=== PATIENT | female | born 2000 | race Caucasian/White ===

== ENCOUNTER 2024-06-26 11:35 | Emergency (ER) | payer BC, SELFPAY ==
[2024-06-26 11:53] VITALS: BP 137/63; PULSE 79; RESP 18; TEMP 36.8; O2SAT 100; BMI 24.2
--- NOTE | 2024-06-26 12:20 | ED_ITS ---
<Statement entered by Leoncio Gibbons DO - 06/26/24 17:48> Dr. Gibbons: I was immediately available in the department for consultation. Documentation has been reviewed. I agree with assessment and plan. HPI - Female Genitourinary General Chief complaint: Urogenital-Female Stated complaint: cervix pain for a week Time Seen by Provider: 06/26/24 12:20 Source: patient Mode of arrival: Ambulatory History of Present Illness HPI Narrative: Ms. Mercer is a pleasant 23-year-old female with a past medical history of IBS who presents to the emergency department for ?cervix pain? x5 days. Patient reports on 06/18/2024 while having intercourse with her boyfriend she had pain on her cervix. This pain returned on the and has been constant since then. States that she had some vaginal spotting and ?thick? discharge prior to the pain but at this time she has no abnormal bleeding or discharge. No malodorous discharge. Denies fevers, chills, nausea, vomiting, dysuria, hematuria, constipation, diarrhea, chest pain, shortness of breath. She has Nexplanon control. LMP was ?the end of May?. Related Data Home Medications Medication Instructions Recorded Confirmed Control PO 05/13/23 05/13/23 Previous Rx's Medication Instructions Recorded cephalexin 500 mg capsule 500 mg PO QID 5 days #20 caps 06/26/24 Allergies Allergy/AdvReac Type Severity Reaction Status Date / Time peanut Allergy Anaphylaxis Verified 06/26/24 11:58 tree nut Allergy Anaphylaxis Verified 06/26/24 11:58 Review of Systems Review of Systems ROS Unobtainable: All systems reviewed & are unremarkable except as noted in HPI and below Patient History tobacco type: vaping Substance Use Type: marijuana Exam Narrative Exam Narrative: GENERAL: 23 year old patient appears stated age. Well-developed patient, in no acute distress. HEAD: Atraumatic. Normocephalic. EYES: . Extraocular motions intact. No scleral icterus. No injection or drainage. ENT: Nose without bleeding, purulent drainage. Throat without erythema, tonsillar hypertrophy or exudate. Airway patent. NECK: Trachea midline. Cervical ROM intact. CARDIOVASCULAR: Regular rate and rhythm. RESPIRATORY: ?Nonlabored respirations. ?Speaking in clear, full sentences. ?Clear to auscultation. Breath sounds equal bilaterally. No wheezes, rales, or rhonchi. ? GASTROINTESTINAL: Abdomen soft, non-tender, nondistended. Normal bowel sounds. PELVIC: Patient gave verbal consent for pelvic exam. Female nurse doffer present. Patient had very minimal amount of thin clear discharge present vaginal vault. No cervical motion tenderness but she did reports some discomfort on bimanual exam. No bleeding or abnormal lesions. EXTREMITIES: No edema or joint tenderness. BACK: Nontender without deformity or crepitance. No flank tenderness. NEURO: AOx3. ?Clear speech. ?Moves all 4 extremities appropriately. SKIN: No rash or erythema of visible areas Initial Vital Signs Initial Vital Signs: Vital Signs Temperature 98.2 F 06/26/24 11:53 Pulse Rate 79 06/26/24 11:53 Respiratory Rate 18 06/26/24 11:53 Blood Pressure 137/63 06/26/24 11:53 Pulse Oximetry 100 06/26/24 11:53 Oxygen Delivery Method Room Air 06/26/24 11:53 Course Orders Ordered: ED Orders 06/26/24 12:28 CBC Auto Diff [Complete Blood Count AUTO DIFF] Stat CMP [Comprehensive Metabolic Panel] Stat Lipase Stat 06/26/24 12:31 US pelvic complete Stat 06/26/24 12:36 Test Urine Stat Urine Microscopic Stat 06/26/24 15:15 Chlamydia/Gonoc/Myco Genital Stat Genital Culture Stat Wet Prep Tric BV Dawn Stat Discontinued Medications Acetaminophen (Acetaminophen 325 Mg Tablet) 975 mg PO NOW ONE Stop: 06/26/24 12:31 Last Admin: 06/26/24 12:52 Dose: 975 mg Documented By: KINGSLEY Vital Signs Vital signs: Vital Signs - 8 hr 06/26/24 11:53 Temperature 98.2 F Pulse Rate 79 Respiratory Rate 18 Blood Pressure 137/63 Pulse Oximetry 100 Oxygen Delivery Method Room Air MDM - Female Genitourinary Lab Data 06/26/24 12:28 06/26/24 12:28 Labs: Lab Results 06/26/24 06/26/24 Range/Units 12:28 12:36 WBC 5.0 (4.5-11.0) X10^3/uL RBC 4.64 (4.0-5.2) X10^6/uL Hgb 13.5 (12.0-16.0) g/dL Hct 40.7 (36-46) % MCV 87.8 (80-100) fL MCH 29.0 (26-34) PG MCHC 33.1 (30-36) % RDW 13.0 (11.6-14.8) % Plt Count 189 (150-400) X10^3/uL Neut % (Auto) 52.9 (50-75) % Lymph % (Auto) 31.1 (25-40) % Gates % (Auto) 10.1 (3-14) % Eos % (Auto) 5.0 H (2-4) % Baso % (Auto) 0.9 (0-2) % Neut # (Auto) 2700 (1124-3707) /uL Lymph # (Auto) 1600 (8548-8361) /uL Gates # (Auto) 500 (0-900) /uL Eos # (Auto) 300 (0-450) /uL Baso # (Auto) 0 (0-100) /uL Sodium 138 (137-145) mmol/L Potassium 3.9 (3.4-5.1) mmol/L Chloride 106 (98-107) mmol/L Carbon Dioxide 27 (22-32) mmol/L BUN 16 (7-17) mg/dL Creatinine 0.67 (0.52-1.04) mg/dL Estimated GFR > 60 (>60) mL/min BUN/Creatinine Ratio 23.9 H (6-22) Glucose 94 (70-100) mg/dL Calcium 8.9 (8.4-10.2) mg/dL Total Bilirubin 0.6 (0.2-1.3) mg/dL AST 24 (14-36) IU/L ALT 16 (<35) IU/L Alkaline Phosphatase 46 (38-126) U/L Total Protein 7.3 (6.3-8.2) g/dL Albumin 4.3 (3.5-5.0) g/dL Globulin 3.0 (1.7-4.1) g/dL Albumin/Globulin Ratio 1.4 (1.0-2.8) Lipase 93 (23-300) U/L Urine RBC 0-1/hpf (0-5/HPF) Urine WBC 0-1/hpf (0-5/HPF) Ur Squamous Epith Cells 1-5 /hpf (0-5/HPF) Urine Bacteria Many (>30) H (None) Urine Mucus 2+ H (Negative) Ur Culture Indicated? Cult not indicated Vol Urine Centrifuged 10ml (spun) Urine Test Negative (Negative) Imaging Data Pelvic US: Radiologist's Impression: PROCEDURE: US PELVIC COMPLETE INDICATIONS: CERVICAL PAIN ?PELVIC INFLAMATORY DISEASE TECHNIQUE: Real-time scanning was performed of the pelvic organs, with image documentation. Additional endovaginal scanning was necessary due to incomplete visualization of the adnexal and endometrial structures by transabdominal scanning. COMPARISON: None. FINDINGS: Uterus: Uterus is retroverted and normal in size at 7.2 x 5.1 x 4.4 cm. The myometrium is homogeneous. The endometrium measures 3 mm combined thickness. Ovaries: The right ovary measures 6.8 x 5.3 x 4.1 cm, with a calculated ovarian volume of 76 cc. There is a cyst measuring 5.9 x 4.4 x 4.1 cm which appears predominantly simple in sonographic appearance although mild diffuse internal echoes are noted. The right ovary has normal vascular waveforms. The left ovary measures 0.2 x 1.4 x 1.1 cm, with a calculated ovarian volume of 3.4 cc. The left ovary has a normal sonographic appearance. Less than 12 follicles can be seen in left ovary. No adnexal masses are seen. Other: No pathologic free abdominal or pelvic fluid. There is fluid within the posterior cul-de-sac with a few thin septations possibly representing residual earl ruptured cysts. IMPRESSION: 1. Right ovary without evidence for torsion. There is a 5.9 cm mostly simple appearing right ovarian cyst. Recommend follow-up ultrasound in 1 year to document continued stability versus resolution. 2. Pelvic free fluid within the posterior cul-de-sac with a few thin septations which may represent sequela of recently ruptured cysts. Consider follow-up pelvic ultrasound in 6-12 weeks to document stability versus resolution. 3. Normal sonographic appearance of the left ovary. [facility] Narrative Medical decision making narrative: Otherwise healthy 23-year-old female presents to the emergency department for 5 days of cervical pain during intercourse. Differential diagnosis includes but is not limited to pelvic inflammatory disease, UTI, cystitis, ovarian cyst, uterine fibroid, dysmenorrhea, etc. On exam patient is in no acute distress, nontoxic-appearing, all vital signs within normal limits. Abdominal exam benign. We will proceed with pelvic exam, abdominal labs, pelvic ultrasound. We will treat with Tylenol. Pelvic ultrasound reveals 5.9 cm right ovarian cyst, no ovarian torsion. There is fluid in the posterior cul-de-sac with a few thin septations possibly representing residual earl of ruptured cysts. Lab work reveals a normal WBC count of 5.0. No anemia. Normal electrolytes. Lipase normal at 93. Urine micro reveals many urine bacteria. test negative. Wet prep negative for WBC cells, clue cells, yeast, trichomonas. Gonorrhea/chlamydia testing still pending. Overall patient's physical exam not consistent with pelvic inflammatory disease and she also has a UTI and ovarian cyst to contribute to her pain. I did offer empiric testing for gonorrhea/chlamydia however she declines. I discussed very strict return precautions and advised her to return to the ER if she develops any new or worsening symptoms or her symptoms do not improve in the next 24-48 hours. Recommend follow up ultrasound in 6-12 weeks with OBGYN and prompt OBGYN follow up. All of patient's questions answered, she is stable for discharge and requesting discharge. Discharge Plan Departure Patient Disposition: Home Clinical Impression: Cystitis, Cyst of right ovary Instructions: DI for Urinary Tract Infection (UTI), DI for Ovarian Cyst Activity Restrictions/Additional Instructions: Dear Iris, Your diagnosis today is UTI & ovarian cyst. Please follow up with OBGYN as soon as possible for further evaluation of your ovarian cyst and likely ruptured ovarian cyst. We recommend repeat pelvic ultrasound in 6-12 weeks. Please avoid sexual intercourse until your pain has resolved until your gonorrhea/chlamydia results have come back negative. If they come back positive, you will be called for antibiotics. Please take Ibuprofen (Motrin/Advil) or Acetaminophen (Tylenol) for pain. These are available over the counter. You may take Ibuprofen 600 mg every 8 hours with food for pain. You may also take Acetaminophen 650 mg every 4-6 hours for pain. Do not exceed 3000 mg of Tylenol a day as this can cause liver damage. Do not drink alcohol with either of these medications. Please follow up with your primary care doctor within the next 2-3 days for ER follow-up. (If you do not have a PCP you can call [phone]. ?to schedule an appointment with an [facility] Primary Care Provider) IF YOU DEVELOP ANY NEW OR WORSENING SYMPTOMS, RETURN TO THE ER! Please read the attached instructions, they highlight more specific treatments and interventions for you at home. Thank you for letting me participate in your care, Maci Sagastume PA-C Prescriptions: New cephalexin 500 mg capsule 500 mg PO QID 5 Days Qty: 20 0RF No Action Control PO Referrals: Miscellaneous,Doctor, MD [Primary Care Provider] - Stand Alone Forms: Patient Portal/API/Survey
--- NOTE | 2024-06-26 12:31 | DI.US.S_ITS ---
PROCEDURE: US PELVIC COMPLETE INDICATIONS: CERVICAL PAIN ?PELVIC INFLAMATORY DISEASE TECHNIQUE: Real-time scanning was performed of the pelvic organs, with image documentation. Additional endovaginal scanning was necessary due to incomplete visualization of the adnexal and endometrial structures by transabdominal scanning. COMPARISON: None. FINDINGS: Uterus: Uterus is retroverted and normal in size at 7.2 x 5.1 x 4.4 cm. The myometrium is homogeneous. The endometrium measures 3 mm combined thickness. Ovaries: The right ovary measures 6.8 x 5.3 x 4.1 cm, with a calculated ovarian volume of 76 cc. There is a cyst measuring 5.9 x 4.4 x 4.1 cm which appears predominantly simple in sonographic appearance although mild diffuse internal echoes are noted. The right ovary has normal vascular waveforms. The left ovary measures 0.2 x 1.4 x 1.1 cm, with a calculated ovarian volume of 3.4 cc. The left ovary has a normal sonographic appearance. Less than 12 follicles can be seen in left ovary. No adnexal masses are seen. Other: No pathologic free abdominal or pelvic fluid. There is fluid within the posterior cul-de-sac with a few thin septations possibly representing residual earl ruptured cysts. IMPRESSION: 1. Right ovary without evidence for torsion. There is a 5.9 cm mostly simple appearing right ovarian cyst. Recommend follow-up ultrasound in 1 year to document continued stability versus resolution. 2. Pelvic free fluid within the posterior cul-de-sac with a few thin septations which may represent sequela of recently ruptured cysts. Consider follow-up pelvic ultrasound in 6-12 weeks to document stability versus resolution. 3. Normal sonographic appearance of the left ovary. We strive to produce accurate, complete, and clear reports of imaging services. To assist us in improving patient care, this report was composed using standard report templates and voice recognition software. Therefore, it may contain abnormal punctuation, insertions and/or omissions. Occasional wrong-word or sound-alike substitutions may occur. Though we review the report and make efforts to correct it, we do recommend that the report be read carefully in proper context to recognize any text inaccuracies. Dictated by: Milton Hussein M.D. on 06/26/2024 at 16:27 Approved by: Milton Hussein M.D. on 06/26/2024 at 16:35
[2024-06-26] MEDS: ACETAMINOPHEN 325 MG TABLET 975 MG PO (12:52)
[2024-06-26 13:03] LABS: Add Manual Diff / Slide Review NO; Basophils Absolute Auto 0 /uL (0-100); Basophils Percent Auto 0.9 % (0-2); Eosinophils Absolute Auto 300 /uL (0-450); Hematocrit 40.7 % (36-46); Hemoglobin 13.5 g/dL (12.0-16.0); Lymphocytes Absolute Auto 1600 /uL (1100-4500); Lymphocytes Percent Auto 31.1 % (25-40); Mean Corpuscular HGB Conc 33.1 % (30-36); Mean Corpuscular Volume 87.8 fL (80-100); Monocytes Absolute Auto 500 /uL (0-900); Monocytes Percent Auto 10.1 % (3-14); Neutrophils Absolute Auto 2700 /uL (1500-7000); Neutrophils Percent Auto 52.9 % (50-75); Platelet Count 189 X10^3/uL (150-400); Red Blood Cell Count 4.64 X10^6/uL (4.0-5.2)
[2024-06-26 13:05] LABS: Pregnancy Test Urine Negative (Negative)
[2024-06-26 13:08] LABS: Bacteria Urine Many (>30); Mucus Urine 2+ (Negative); RBC Urine 0-1/HPF (0-5/HPF); Squamous Epithelial Cell Urine 1-5 /HPF (0-5/HPF); Urine Volume 10mL (spun); WBC Urine 0-1/HPF (0-5/HPF)
[2024-06-26 13:09] LABS: Culture Indicated Urine Cult Not Indicated
[2024-06-26 13:10] LABS: Alanine Aminotransferase 16 IU/L (<35); Albumin 4.3 g/dL (3.5-5.0); Albumin Globulin Ratio 1.4 (1.0-2.8); Alkaline Phosphatase 46 U/L (38-126); Aspartate Aminotransferase 24 IU/L (14-36); BUN Creatinine Ratio 23.9 (6-22); Bilirubin Total 0.6 mg/dL (0.2-1.3); Blood Urea Nitrogen 16 mg/dL (7-17); Calcium 8.9 mg/dL (8.4-10.2); Carbon Dioxide 27 mmol/L (22-32); Chloride 106 mmol/L (98-107); Estimated Glomerular Filt Rate > 60 mL/min (>60); Glucose 94 mg/dL (70-100); HEMOLYSIS < 15 (0-50); Lipase 93 U/L (23-300); Potassium 3.9 mmol/L (3.4-5.1); Sodium 138 mmol/L (137-145); Total Protein 7.3 g/dL (6.3-8.2)
[2024-06-26 17:04] VITALS: BP 121/60; PULSE 64; RESP 16; O2SAT 100
[2024-06-30 10:32] LABS: Chlamydia trachomatis Negative (Negative); Mycoplasma genitalium Negative (Negative); Neisseria gonorrhoeae Negative (Negative)
== END 2024-06-26 17:14 | disposition home or self-care (01) ==
PROVIDERS: Emergency Provider Physician Assistant
DX: N30.90 Cystitis, unspecified without hematuria (principal); N83.201 Unspecified ovarian cyst, right side
CPT/HCPCS: 36415; 76830; 76856; 80053; 81015; 81025; 83690; 85025; 87070; 87205; 87210; 87491; 87563; 87591; 93975; 99283; 99284